=== PATIENT | female | born 1975 | race African-American/Black ===

== ENCOUNTER 2016-06-01 08:50 | Emergency (ER) | payer OTHER ==
[2016-06-01 09:02] VITALS: TEMP 98; BMI 22.1
[2016-06-01 10:39] LABS: BASOPHIL 0.8 % (0-2.0); EOSINOPHIL 0.7 % (0-4.5); MCH 26.6 pg (25.7-33.7); MCHC 31.6 g/dl (32.0-36.0); MEAN CELL VOLUME 84.2 fl (80-96); MEAN PLT VOLUME 8.5 fl (7.5-11.1); NEUTROPHILS 67.9 % (42.8-82.8); PLATELET COUNT 180 K/MM3 (134-434); RDW 22.3 % (11.6-15.6); WHITE BLOOD COUNT 8.9 K/mm3 (4.0-10.0)
[2016-06-01 10:42] LABS: URINE APPEARANCE SLCLOUDY; URINE BILIRUBIN NEGATIVE (NEGATIVE); URINE COLOR YELLOW; URINE GLUCOSE (UA) NEGATIVE (NEGATIVE); URINE KETONE NEGATIVE (NEGATIVE); URINE LEUK ESTERASE NEGATIVE (NEGATIVE); URINE NITRITE NEGATIVE (NEGATIVE); URINE UROBILINOGEN NEGATIVE E.U./dl (0.2-1.0)
[2016-06-01 10:43] LABS: URINE BLOOD 3+ (NEGATIVE); URINE PROTEIN 1+ (NEGATIVE)
[2016-06-01 10:45] LABS: URINE MUCUS FEW; URINE RBC 817 /hpf (0-3); URINE WBC 15 /hpf (3-5)
--- NOTE | 2016-06-01 10:45 | PDOC ---
History of Present Illness - General Chief Complaint: Vaginal Bleeding Stated Complaint: LOWER PELVIC PAIN/ BLEEDING Time Seen by Provider: 06/01/16 09:26 History Source: Patient Exam Limitations: No Limitations - History of Present Illness Travel History: No Initial Comments: 06/01/16 10:05 41-year-old female presents the ED with irregular menses since last week having her cycle twice amount to return since yesterday with heavy vaginal bleeding associated with grape-sized blood clots. Patient states otherwise has a normal menses but does state history of fibroids with removal a few years ago under the care of Dr. Jacobs. Patient also complaining of suprapubic cramping but she did not take anything for the above and decided come to the ER for further evaluation. Patient denies history of anemia, dizziness presently, shortness of breath or chest pain. Timing/Duration: reports: constant Quality: reports: moderate, cramping Abdominal Pain Onset Location: reports: suprapubic (mid) Pain Radiation: reports: no radiation Activities at Onset: reports: none Aggravating Factors: improves with: None Alleviating Factors: improves with: None Past History - Past Medical History Allergies/Adverse Reactions: Allergies Allergy/AdvReac Type Severity Reaction Status Date / Time No Known Allergies Allergy Verified 05/28/13 13:29 Home Medications: Ambulatory Orders No Home Medications 0 dose .ROUTE UTDICT 05/28/13 Anemia: No Asthma: No Cancer: No Cardiac Disorders: No CVA: No COPD: No CHF: No Dementia: No Diabetes: No GI Disorders: Yes (ACID REFLUX) Disorders: No HTN: No Hypercholesterolemia: No Liver Disease: No Seizures: No Thyroid Disease: No - Surgical History Abdominal Surgery: No Appendectomy: No Cardiac Surgery: No Cholecystectomy: No Lung Surgery: No Neurologic Surgery: No Orthopedic Surgery: No - Reproductive History LMP Normal: No Is Patient Now?: No - Psycho/Social/Smoking Cessation Hx Anxiety: No Suicidal Ideation: No Smoking History: Current every day smoker Have you smoked in the past 12 months: Yes Number of Cigarettes Smoked Daily: 12 Information on smoking cessation initiated: Yes 'Breaking Loose' booklet given: 06/01/16 Hx Alcohol Use: No Drug/Substance Use Hx: No Substance Use Type: None Hx Substance Use Treatment: No Patient Lives Alone: No Lives with/in: spouse/SO Review of Systems - Review of Systems Able to Perform ROS?: Yes Constitutional: No: Symptoms Reported HEENTM: No: Symptoms Reported Respiratory: No: Symptoms reported Cardiac (ROS): No: Symptoms Reported ABD/GI: Yes: Abdominal cramping (and vaginal bleeding) : No: Symptoms Reported Musculoskeletal: No: Symptoms Reported Integumentary: No: Symptoms Reported Neurological: No: Symptoms reported Hematologic/Lymphatic: No: Symptoms Reported *Physical Exam - Vital Signs Last Vital Signs Temp Pulse Resp BP Pulse Ox 98.0 F 108 H 18 162/90 100 06/01/16 08:53 06/01/16 08:53 06/01/16 08:53 06/01/16 08:53 06/01/16 08:53 - Physical Exam General Appearance: Yes: Nourished, Appropriately Dressed. No: Apparent Distress HEENT: negative: Pale Conjunctivae Neck: positive: Supple Respiratory/Chest: positive: Lungs Clear, Normal Breath Sounds. negative: Respiratory Distress, Accessory Muscle Use Cardiovascular: positive: Regular Rhythm, Tachycardia. negative: Murmur Female Pelvic Exam: positive: cervical os closed, vaginal bleeding (bright red blood with small clots) Gastrointestinal/Abdominal: positive: Normal Bowel Sounds, Soft, Distended ( mild mid suprapubic). negative: Tenderness Musculoskeletal: negative: CVA Tenderness Integumentary: positive: Normal Color, Warm, Moist Neurologic: positive: Motor Strength 5/5 (ambulatory) ED Treatment Course - LABORATORY CBC & Chemistry Diagram: 06/01/16 10:20 Medical Decision Making - Medical Decision Making 06/01/16 10:07 Complaints of vaginal bleeding with clots and irregular menses for the past month. Patient states history of fibroids and removal a few years ago. Patient states has not taken anything for the above and decided come to the ER. Patient on exam had moderate amount of bright red blood with small clots and mid suprapubic distention. Patient states states highly unlikely that she is . Patient ordered for CBC, urinalysis and urine . If negative will order a pelvic ultrasound and Motrin 06/01/16 11:09 Laboratory Tests 06/01/16 06/01/16 10:20 10:20 WBC 8.9 D Hgb 9.8 L D Hct 31.0 L D Plt Count 180 Neutrophils % 67.9 Monocytes % 14.8 H Urine Protein 1+ H Urine Ketones Negative Urine Blood 3+ H Urine Nitrite Negative Ur Leukocyte Esterase Negative Urine RBC 817 Urine HCG, Qual Negative patient ordered for ultrasound and Motrin 06/01/16 12:15 Ultrasound shows an enlarged uterus measuring 19.7 x 9.8 x 8.8 with multiple and uterine masses consistent with fibroids. The largest fibroid measuring 5.6 x 3.8 x 5.4. There is also noted thickening endometrial 2.0 cm. Patient will be told to follow-up with Dr. Jacobs this week *DC/Admit/Observation/Transfer Diagnosis at time of Disposition: Dysmenorrhea Uterine leiomyoma Qualifiers: Uterine leiomyoma location: intramural Qualified Code(s): D25.1 - Intramural leiomyoma of uterus - Discharge Dispostion Disposition: HOME Condition at time of disposition: Good - Referrals Referrals: Chrissy Jacobs MD [Staff Physician] - - Patient Instructions Printed Discharge Instructions: DI for Uterine Fibroids Additional Instructions: May take Tylenol Motrin for discomfort. Please use a heating pad to the affected area. Please eat iron enriched foods and drink plenty of fluids . Follow-up with Dr. Jacobs this week and bring copy of ultrasound with you.
[2016-06-01] MEDS ORDERED: IBUPROFEN 600 MG TABLET (FP) PO ONE ×2 (11:04→11:20)
[2016-06-01 13:12] VITALS: BP 144/60; PULSE 95
--- NOTE | 2016-06-01 16:36 | PDOC ---
*Physical Exam - Vital Signs Last Vital Signs Temp Pulse Resp BP Pulse Ox 98.0 F 95 H 18 144/60 99 06/01/16 08:53 06/01/16 13:11 06/01/16 13:11 06/01/16 13:11 06/01/16 13:11 ED Treatment Course - LABORATORY CBC & Chemistry Diagram: 06/01/16 10:20 - ADDITIONAL ORDERS Additional order review: Laboratory Results 06/01/16 10:20 Urine Color Yellow Urine Appearance Slcloudy Urine pH 6.0 Ur Specific Banner 1.023 Urine Protein 1+ H Urine Glucose (UA) Negative Urine Ketones Negative Urine Blood 3+ H Urine Nitrite Negative Urine Bilirubin Negative Urine Urobilinogen Negative Ur Leukocyte Esterase Negative Urine RBC 817 Urine WBC 15 Ur Epithelial Cells Rare Urine Mucus Few Urine HCG, Qual Negative 06/01/16 10:20 RBC 3.69 D MCV 84.2 MCHC 31.6 L RDW 22.3 H D MPV 8.5 Neutrophils % 67.9 Lymphocytes % 15.8 D Monocytes % 14.8 H Eosinophils % 0.7 Basophils % 0.8 D - Medications Given in the ED: ED Medications Discontinued Medications Generic Name Dose Route Start Last Admin Trade Name Freq PRN Reason Stop Dose Admin Ibuprofen 600 mg 06/01/16 11:04 06/01/16 11:30 Motrin - PO 06/01/16 11:05 600 mg ONCE ONE Administration Medical Decision Making - Medical Decision Making 06/01/16 16:36 Pt seen by Midlevel Provider under my direct supervision I agree with plan as outlined by Midlevel Provider *DC/Admit/Observation/Transfer Diagnosis at time of Disposition: Dysmenorrhea Fibroids Qualifiers: Uterine leiomyoma location: intramural Qualified Code(s): D25.1 - Intramural leiomyoma of uterus - Discharge Dispostion Disposition: HOME Condition at time of disposition: Good - Referrals Referrals: Chrissy Jacobs MD [Staff Physician] - - Patient Instructions Printed Discharge Instructions: DI for Uterine Fibroids Additional Instructions: May take Tylenol Motrin for discomfort. Please use a heating pad to the affected area. Please eat iron enriched foods and drink plenty of fluids . Follow-up with Dr. Jacobs this week and bring copy of ultrasound with you. - Post Discharge Activity
== END 2016-06-01 13:12 | disposition home or self-care (01) ==
LOC: JER 08:50
DX: N94.6 Dysmenorrhea, unspecified (principal); D25.1 Intramural leiomyoma of uterus
CPT/HCPCS: 36415; 76856-TC; 81003; 81015; 84703; 85025; 99283-25

== ENCOUNTER 2016-06-21 05:04 | Inpatient (IN) | payer OTHER ==
[2016-06-17 12:07] VITALS: BMI 21.8
[2016-06-21] MEDS ORDERED: ROPIVACAINE HCL 0.5% 30ML VIAL ONE (08:54)
[2016-06-21] MEDS ORDERED: MIDAZOLAM HCL 2 MG/2 ML SINGLE DOSE VIAL ONE ×3 (08:56→09:17)
[2016-06-21] MEDS ORDERED: ePHEDrine SULFATE 50 MG/1 ML AMPULE ONE (09:16)
[2016-06-21] MEDS ORDERED: SUCCINYLCHOLINE CHLORIDE 200 MG/10 ML VIAL ONE (09:17)
[2016-06-21] MEDS ORDERED: ROCURONIUM BROMIDE 50 MG/5 ML VIAL ONE (09:17)
[2016-06-21] MEDS ORDERED: PROPOFOL 20 ML ONE ×2 (09:17)
[2016-06-21] MEDS ORDERED: BUPIVACAINE HCL/PF 0.5% (5MG/ML) 10 ML VIAL ONE (09:24)
--- NOTE | 2016-06-21 09:34 | HP ---
History & Physical Update - History History: No Change - Physical Physical: No Change - Assessment Assessment: No Change - Plan Plan: No Change (41 y/o with enlarged fibroid uterus, menorrhagia and abdominal pain - for total abdominal hysterectomy and bilateral salpingectomy.)
[2016-06-21] MEDS ORDERED: BUPIVACAINE HCL/PF 0.5% (5MG/ML) 10 ML VIAL IJ ONE (10:00)
[2016-06-21] MEDS ORDERED: ceFAZolin SODIUM 1 GM VIAL IVPB ONE (10:20)
[2016-06-21] MEDS ORDERED: METHYLENE BLUE 1% 10 MG/1 ML VIAL ONE (10:52)
[2016-06-21] MEDS ORDERED: METHYLENE BLUE 1% 10 MG/1 ML VIAL IVPUSH ONE (10:54)
--- NOTE | 2016-06-21 12:24 | OP ---
Operative Note - Note: Operative Date: 06/21/16 (dictation number: [id number]) Pre-Operative Diagnosis: Fibroid uterus, menorrhagia, abdominal pain Operation: Total abdominal hysterectomy, bilateral salpingectomy, right oophorectomy Findings: left ovarian cyst - appeared to be dermoid in nature adhesions from bladder to anterior uterus Post-Operative Diagnosis: Same as Pre-op (and left ovarian cyst) Surgeon: Keiko Bennett Cake Wringer: Chrissy Jacobs Anesthesiologist/BEHAVIORAL PSYCHOLOGIST: Raymond Umana Anesthesia: General Specimens Removed: Uterus, bilateral fallopian tubes, right ovary, cervix, left ovarian cyst Estimated Blood Loss (mls): 650 Operative Report Dictated: Yes
[2016-06-21] MEDS ORDERED: IBUPROFEN 800 MG/8 ML IJ IVPB PRN (12:25)
[2016-06-21] MEDS ORDERED: IBUPROFEN 600 MG TABLET (FP) PO PRN (12:25)
[2016-06-21] MEDS ORDERED: ACETAMINOPHEN 325 MG TABLET (FP) PO PRN (12:25)
[2016-06-21] MEDS ORDERED: SENNOSIDES/DOCUSATE COMBO (SENNA PLUS) TABLET (UD) PO PRN (12:25)
[2016-06-21] MEDS ORDERED: ONDANSETRON 4 MG/2 ML VIAL IVPB PRN (12:27)
[2016-06-21] MEDS: LACTATED RINGERS SOLUTION 1,000 ML IV SCH (14:42)
[2016-06-21 16:38] LABS: MCH 27.7 pg (25.7-33.7); MCHC 31.3 g/dl (32.0-36.0); MEAN CELL VOLUME 88.6 fl (80-96); MEAN PLT VOLUME 8.1 fl (7.5-11.1); PLATELET COUNT 353 K/MM3 (134-434); RDW 22.7 % (11.6-15.6); WHITE BLOOD COUNT 15.2 K/mm3 (4.0-10.0)
[2016-06-21] MEDS: HYDROmorphone HCL CARPU-JECT 1 MG/1 ML DISP.SYRIN IVPB PRN ×2 (17:45→22:50)
[2016-06-21] MEDS: CEFAZOLIN (PRE-DOCKED) 50 ML IVPB SCH (18:32)
[2016-06-21 20:46] LABS: ANISOCYTOSIS 1+; HYPOCHROMIA 1+; PLATELET ESTIMATE ADEQUATE (NORMAL)
--- NOTE | 2016-06-22 00:04 | OP ---
DATE OF OPERATION: DATE OF DICTATION: 06/21/2016 PREOPERATIVE DIAGNOSIS: Enlarged fibroid uterus, abdominal pain and menorrhagia. POSTOPERATIVE DIAGNOSIS: Enlarged fibroid uterus, abdominal pain and menorrhagia. Left ovarian cyst. PROCEDURE: Total abdominal hysterectomy. Bilateral salpingectomy. Right oophorectomy. Left ovarian cystectomy. SURGEON: Keiko Bennett M.D. TABLEAU LEAD: Chrissy Jacobs M.D. ANESTHESIA: General, administered by Titi Espinoza M.D., and PODODERMATOLOGIST Raymond Umana. ESTIMATED BLOOD LOSS: 650 mL. COMPLICATIONS: None. DISPOSITION: Stable to PACU. SPECIMEN: Specimens removed included uterus, right ovary, bilateral fallopian tubes, left ovarian cyst and cervix. COUNTS: Sponge, needle, and instrument count was correct at the end of the case. BRIEF HISTORY AND PROCEDURE: Patient is a 41-year-old female who was seen in the office with complaints of abdominal pain and menorrhagia with a known prior history of uterine fibroids. The patient had history of a myomectomy in the past and now looked to undergo definitive treatment with a hysterectomy procedure. The patient signed consents for the procedure in the office and was admitted to [facility] on June 21, 2016. Consents were reconfirmed. The patient was then taken back to the operating room where she was given general anesthesia by Dr. Espinoza, administered and maintained by Raymond Umana. The patient was then prepped and draped in the usual sterile fashion in the dorsal supine position. A Chavez catheter was placed under sterile conditions, and a hard timeout was performed. Next, a Pfannenstiel skin incision was created in the skin using the scalpel and carried to the underlying area of rectus fascia with the Bovie. The rectus fascia was incised on either side of the midline with the Bovie, and the incision was carried in the superolateral direction with the Bovie. The rectus fascia was tented upward and dissected off the underlying layer of rectus muscle. Next the rectus muscle was elevated and sharply, and the peritoneum was entered bluntly. The Peritoneum was then carefully dissected to allow for adequate room for the procedure. The uterus was identified, grasped and elevated out of the abdomen. Adhesions from the omentum to the left portion of the uterus were noted which were dissected off with Metzenbaum scissors. Next, attention was turned to the right side of the uterus where the bladder appeared to be adhered to the anterior portion. This bladder was then carefully dissected away from the anterior portion of the uterus and the cervix. Next, the right uteroovarian ligament was identified, clamped, and ligated with the Ligasure device. This was done on several passes. During this dissection the right ovary appeared to be densely adhered to the uterus and upon attempting to dissect the ovary away from the uterus which was difficult, it was decided to remove the ovary at this time. The right infundibulopelvic ligament was located, isolated, clamped, and ligated with the Ligasure device. The ovary remained adhered to the uterus at this time. The uterine arteries on the right side were difficult to see at this time, so attention was then turned to the left portion of the uterus. The left uteroovarian ligament was identified, isolated, clamped and cut with the Ligasure device, detaching the left ovary and tube from the uterus. Next, the round ligament was identified, clamped, ligated , and cut with the Ligasure device, and the bladder anteriorly was dissected away from the anterior portion of the uterus and cervix on the left side meeting the prior dissection on the right side. At this point, the bladder seemed to be fully dissected away from the anterior portion of the uterus and the cervix. The left uterine arteries were isolated, ligated, and cut with the Ligasure device to the level of the uterosacral ligaments. Attention was then turned to the right side. At this point, the uterine arteries were easily identified and skeletonized and isolated. Then they were clamped and ligated with the Ligasure device on several passes until the level of the uterosacral ligaments was reached. The anterior portion of the vagina was entered sharply with a scalpel at the cervicovaginal junction, and using Lit scissors, the uterus was detached from the top of the vagina in a circumferential fashion. At this point, the uterus, right ovary, and cervix were sent to pathology for evaluation. The vagina was then reapproximated in the running locked fashion with 0 Vicryl suture. Hemostasis was achieved. Attention was then turned to the right adnexa, and the fallopian tube was elevated and ligated and dissected off its attachment and sent to pathology for permanent evaluation. The right adnexa appeared to be hemostatic at this time. The ureter was identified transperitoneally on the right side at this time, noted to be within normal caliber and peristalsing. At this time, methylene blue was administered, as there was plan to evaluate bladder integrity later in the procedure. Next, attention was turned to the left ovary which appeared to have a large approximately 4 cm cyst. The ovary was elevated, and the ovarian stoma was incised using the Bovie, and what appeared to be a dermoid cyst was appreciated and dissected away from its attachment to the ovary. The ovarian cyst was sent off to pathology for permanent evaluation. The ovarian bed was cauterized to achieve hemostasis, and then the fallopian tube which was adhered to the ovary was elevated and dissected off its attachment to the ovary using Ligasure device and sent off to pathology for permanent evaluation. Again, hemostasis was appreciated on the left adnexa after this portion of the procedure. Attention was then turned again to the vagina. A small area of the peritoneum was noted to be bleeding which was cauterized on the posterior wall of the vagina. At this point the bladder was back filled using the Chavez device with approximately 250 mL of fluid. The bladder did fill, and no methylene blue or urine was noted to be leaking into the abdomen, and the bladder appeared to be intact. The abdomen was irrigated and suctioned. A piece of interceed was placed on the vaginal cuff. Attention was then turned to the left ovary and Interceed was also placed inside the ovary where the surgical procedure had taken place. Again, no methylene blue was noted to be within the abdominal cavity leaking from the bladder at this time. Next, bilateral ureters were identified transperitoneally and noted to be within normal caliber and peristalsing. All sponges were then removed from the abdominal cavity. Instruments were removed from the abdominal cavity. The peritoneum was reapproximated using Vicryl suture in a running fashion. Musculature was reapproximated in a single mattress suture. The fascia was reapproximated using 0 Vicryl in a running fashion. The subcutaneous tissue was reapproximated using 2-0 Vicryl in a running fashion, and the skin was reapproximated using 3-0 Vicryl in a subcuticular fashion. Steri- Strips were applied, Marcaine was injected underneath the incision at this time for further pain control. Patient was awoke from anesthesia in stable condition and was taken to the PACU in stable condition where she is now recovering. All sponge, needle and instrument counts were reported as correct at the end of the case. KEIKO BENNETT DO /[id number] MTDD
[2016-06-22] MEDS: CEFAZOLIN (PRE-DOCKED) 50 ML IVPB SCH ×2 (03:00→09:42)
[2016-06-22] MEDS ORDERED: CEFAZOLIN (PRE-DOCKED) 50 ML IVPB ONE (06:23)
[2016-06-22] MEDS: HYDROmorphone HCL CARPU-JECT 1 MG/1 ML DISP.SYRIN IVPB PRN (07:38)
[2016-06-22] MEDS: SIMETHICONE 80 MG TAB.CHEW (FP) PO PRN ×2 (08:02→18:58)
[2016-06-22] MEDS: LACTATED RINGERS SOLUTION 1,000 ML IV SCH ×2 (08:04→12:45)
[2016-06-22 08:51] LABS: BASOPHIL 0.2 % (0-2.0); MCH 27.5 pg (25.7-33.7); MEAN CELL VOLUME 88.9 fl (80-96); MEAN PLT VOLUME 8.4 fl (7.5-11.1); PLATELET COUNT 267 K/MM3 (134-434); RDW 21.9 % (11.6-15.6); WHITE BLOOD COUNT 18.2 K/mm3 (4.0-10.0)
[2016-06-22] MEDS: ENOXAPARIN NA (PORCINE) 40 MG/0.4 ML DISP.SYRIN SQ SCH (09:42)
[2016-06-22] MEDS: oxyCODONE HCL 5 MG TABLET PO PRN ×4 (13:10→22:13)
--- NOTE | 2016-06-22 21:45 | PN ---
Progress Note, Physician Chief Complaint: Pt without complaints. Resting upon my arrival to the room. History of Present Illness: 41 y/o POD#1 s/p RAMO/Bilateral salpingectomy and right oophorectomy with post op anemia, no other complaints. Pt denies CP/SOB/F/C/MURRELL. States she is ambulating without dizziness. No symptoms of anemia. Tolerating clears, voiding, passing flatus. - Current Medication List Current Medications: Active Medications Acetaminophen (Tylenol -) 650 mg PO Q4H PRN PRN Reason: FEVER OR PAIN Enoxaparin Sodium (Lovenox -) 40 mg SQ DAILY LUIS DANIEL Last Admin: 06/22/16 09:42 Dose: 40 mg Fentanyl (Sublimaze Injection -) 50 mcg IVPUSH [id number] PRN PRN Reason: PAIN Stop: 06/24/16 12:37 Last Admin: 06/21/16 13:35 Dose: 50 mcg Hydromorphone HCl (Dilaudid Injection -) 1 mg IVPB Q4H PRN PRN Reason: PAIN LEVEL 6-10 Last Admin: 06/22/16 07:38 Dose: 1 mg Ibuprofen (Motrin -) 600 mg PO Q4H PRN PRN Reason: PAIN Oxycodone HCl (Roxicodone -) 5 mg PO Q4H PRN PRN Reason: PAIN LEVEL 1-5 Oxycodone HCl (Roxicodone -) 10 mg PO Q4H PRN PRN Reason: PAIN LEVEL 6-10 Last Admin: 06/22/16 17:32 Dose: 10 mg Senna/Docusate Sodium (Pericolace -) 2 tablet PO HS PRN PRN Reason: CONSTIPATION Simethicone (Mylicon -) 80 mg PO Q4H PRN PRN Reason: GAS Last Admin: 06/22/16 18:58 Dose: 80 mg - Objective Vital Signs: Vital Signs Temperature 98.2 F 06/22/16 20:44 Pulse Rate 94 H 06/22/16 20:44 Respiratory Rate 20 06/22/16 20:44 Blood Pressure 142/83 06/22/16 20:44 O2 Sat by Pulse Oximetry (%) 100 06/22/16 09:15 Constitutional: Yes: Well Nourished, No Distress, Calm Eyes: Yes: Conjunctiva Clear, EOM Intact HENT: Yes: Atraumatic, Normocephalic Neck: Yes: Supple, Trachea Midline Cardiovascular: Yes: Regular Rate and Rhythm Respiratory: Yes: Regular, CTA Bilaterally Gastrointestinal: Yes: Normal Bowel Sounds, Soft Wound/Incision: Yes: Clean/Dry, Well Approximated, Steri Strips Labs: CBC, BMP 06/22/16 05:35 Problem List - Problems (1) S/P total abdominal hysterectomy Code(s): Z90.710 - ACQUIRED ABSENCE OF BOTH CERVIX AND UTERUS (2) Status post bilateral salpingectomy Code(s): Z90.79 - ACQUIRED ABSENCE OF OTHER GENITAL ORGAN(S) (3) S/P right oophorectomy Code(s): Z90.721 - ACQUIRED ABSENCE OF OVARIES, UNILATERAL (4) Postoperative anemia due to acute blood loss Code(s): D62 - ACUTE POSTHEMORRHAGIC ANEMIA (5) Postoperative anemia Code(s): D64.9 - ANEMIA, UNSPECIFIED Assessment/Plan 41 y/o POD#1 s/p RAMO, bilateral salpingectomy, right oophorectomy and left ovarian cystectomy due to fibroids, AUB, and left ovarian cyst - AFVSS - Hgb 7.5 post op will recheck CBC in a.m., to consider transfusion if symptomatic or if Hgb continues to drop - regular diet - PO pain meds - ambulation - routine post op care
[2016-06-23] MEDS: oxyCODONE HCL 5 MG TABLET PO PRN ×2 (04:59→15:18)
[2016-06-23 07:11] LABS: MCH 27.6 pg (25.7-33.7); MCHC 31.1 g/dl (32.0-36.0); MEAN CELL VOLUME 88.8 fl (80-96); PLATELET COUNT 228 K/MM3 (134-434); RDW 21.6 % (11.6-15.6); WHITE BLOOD COUNT 11.5 K/mm3 (4.0-10.0)
--- NOTE | 2016-06-23 10:05 | PN ---
Progress Note, Physician Chief Complaint: Pt seen/examined. Feels well. Pain controlled, tolerating clear diet . Passing flatus, voiding. Hgb 6.7 this a.m. Pt denies any VB. No light headedness or dizziness. No CP/SOB. Asymptomatic. - Current Medication List Current Medications: Active Medications Acetaminophen (Tylenol -) 650 mg PO Q4H PRN PRN Reason: FEVER OR PAIN Enoxaparin Sodium (Lovenox -) 40 mg SQ DAILY LUIS DANIEL Last Admin: 06/22/16 09:42 Dose: 40 mg Fentanyl (Sublimaze Injection -) 50 mcg IVPUSH [id number] PRN PRN Reason: PAIN Stop: 06/24/16 12:37 Last Admin: 06/21/16 13:35 Dose: 50 mcg Hydromorphone HCl (Dilaudid Injection -) 1 mg IVPB Q4H PRN PRN Reason: PAIN LEVEL 6-10 Last Admin: 06/22/16 07:38 Dose: 1 mg Ibuprofen (Motrin -) 600 mg PO Q4H PRN PRN Reason: PAIN Oxycodone HCl (Roxicodone -) 5 mg PO Q4H PRN PRN Reason: PAIN LEVEL 1-5 Last Admin: 06/23/16 04:59 Dose: 5 mg Oxycodone HCl (Roxicodone -) 10 mg PO Q4H PRN PRN Reason: PAIN LEVEL 6-10 Last Admin: 06/22/16 22:13 Dose: 10 mg Senna/Docusate Sodium (Pericolace -) 2 tablet PO HS PRN PRN Reason: CONSTIPATION Simethicone (Mylicon -) 80 mg PO Q4H PRN PRN Reason: GAS Last Admin: 06/22/16 18:58 Dose: 80 mg - Objective Vital Signs: Vital Signs Temperature 98.0 F 06/23/16 05:00 Pulse Rate 86 06/23/16 05:00 Respiratory Rate 18 06/23/16 05:00 Blood Pressure 126/73 06/23/16 05:00 O2 Sat by Pulse Oximetry (%) 100 06/22/16 22:00 Constitutional: Yes: Well Nourished, No Distress, Calm Eyes: Yes: Conjunctiva Clear, EOM Intact HENT: Yes: Atraumatic, Normocephalic Neck: Yes: Supple, Trachea Midline Cardiovascular: Yes: Regular Rate and Rhythm Respiratory: Yes: Regular, CTA Bilaterally Gastrointestinal: Yes: Normal Bowel Sounds, Soft, Tenderness (appropriate post surgical tenderness). No: Tenderness, Epigastrium, Tenderness, Rebound, Vomiting Wound/Incision: Yes: Clean/Dry, Well Approximated Neurological: Yes: Alert, Oriented Psychiatric: Yes: Alert, Oriented Labs: CBC, BMP 06/23/16 06:25 Problem List - Problems (1) S/P total abdominal hysterectomy Code(s): Z90.710 - ACQUIRED ABSENCE OF BOTH CERVIX AND UTERUS (2) Status post bilateral salpingectomy Code(s): Z90.79 - ACQUIRED ABSENCE OF OTHER GENITAL ORGAN(S) (3) S/P right oophorectomy Code(s): Z90.721 - ACQUIRED ABSENCE OF OVARIES, UNILATERAL (4) Postoperative anemia due to acute blood loss Code(s): D62 - ACUTE POSTHEMORRHAGIC ANEMIA (5) Postoperative anemia Code(s): D64.9 - ANEMIA, UNSPECIFIED Assessment/Plan 41 y/o POD#2 s/p RAMO, bilateral salpingectomy, right oophorectomy and left ovarian cystectomy due to fibroids, AUB, and left ovarian cyst - AFVSS - Hgb 6.7 this a.m. pt asymptomatic - discussed transfusion, pt agrees, will give 2 units packed red cells a this time - regular diet - PO pain meds - ambulation - routine post op care likely for discharge home after 2 units packed cells given
[2016-06-23] MEDS: ENOXAPARIN NA (PORCINE) 40 MG/0.4 ML DISP.SYRIN SQ SCH (10:55)
[2016-06-23 11:38] VITALS: BP 133/81; PULSE 91; TEMP 97.9
[2016-06-23] MEDS: SIMETHICONE 80 MG TAB.CHEW (FP) PO PRN (11:58)
[2016-06-23 18:39] LABS: BASOPHIL 0.6 % (0-2.0); EOSINOPHIL 0.3 % (0-4.5); MCH 27.6 pg (25.7-33.7); MEAN CELL VOLUME 86.2 fl (80-96); MEAN PLT VOLUME 8.6 fl (7.5-11.1); NEUTROPHILS 77.5 % (42.8-82.8); PLATELET COUNT 270 K/MM3 (134-434); RDW 20.1 % (11.6-15.6); WHITE BLOOD COUNT 11.8 K/mm3 (4.0-10.0)
--- NOTE | 2016-06-24 06:53 | DS ---
[id number] Rate 16 06/23/16 10:00 Blood Pressure 133/81 06/23/16 10:00 O2 Sat by Pulse Oximetry (%) 100 06/22/16 22:00 Constitutional: Yes: Well Nourished, No Distress, Calm Eyes: Yes: Conjunctiva Clear, EOM Intact HENT: Yes: Atraumatic, Normocephalic Neck: Yes: Supple, Trachea Midline Cardiovascular: Yes: Regular Rate and Rhythm Respiratory: Yes: Regular, CTA Bilaterally Gastrointestinal: Yes: Normal Bowel Sounds, Soft, Tenderness (appropriate post surgical tenderness) Musculoskeletal: Yes: WNL Extremities: Yes: WNL Wound/Incision: Yes: Clean/Dry, Well Approximated, Steri Strips Neurological: Yes: Alert, Oriented Psychiatric: Yes: Alert, Oriented Labs: CBC, BMP 06/23/16 17:15 Discharge Summary Reason For Visit: FIBROIDS Fibroids, Menorrhagia, Anemia, abdominal pain Procedures: Principal: Total abdominal hysterectomy, bilateral salpingectomy, right oophorectomy Other Procedures: blood transfusion Hospital Course: Patient admitted to [facility] on 06/21/16 for total abdominal hysterectomy and bilateral salpingectomy. Patient underwent the procedure without complication. EBL was 650cc. Please see operative report for full details. The patient recovered well and met all post operative milestones. On post operatives day 2, then patient was ambulation, voiding, passing flatus and tolerating diet. Her hemoglobin nadired to 6.7. At this point, the patient was counseled and then transfused 2 units of packed red blood cells. On the evening of 06/23/16, the patient's hemoglobin had risen to 10.2. Vitals remained stable. The patient was then discharged home in stable condition on post op day 2. Condition: Good - Instructions Diet, Activity, Other Instructions: Physical activity Resume your normal everyday activity as tolerated no heavy lifting or strenuousexercise until seen by your surgeon. You may walk unlimited amounts and climb stairs. You may resume driving the car when you feel safe and comfortable behind the wheel. No sexual activity as instructed for at least 6 weeks. Wound care If there are tapes on the skin leave them in place. They will peel off in the next 7 to 10 days. Do Not Peel them off. You may shower the day after surgery. If there are tapes present on the skin, you may shower over them. You may shower. No soaking in baths/tubs/pools for 6 weeks. Diet There are no dietary restrictions. Eat healthy, high-fiber foods. Drink 6 to 8 glasses of liquid each day. This will assist in keeping your bowels regular. Pain management You may take Tylenol or acetaminophen or Ibuprofen (for example, Motrin, Advil etc.) for pain. If any prescription pain medication is sent to your pharmacy, you may take as directed for severe pain. Call Dr. Bennett for any of the following: Severe pain not relieved by medication Fever of 101 or higher Excessive bleeding or drainage on dressing Inability to urinate Call the office at [phone] for an appointment in seven days. Referrals: Keiko Bennett DO [Staff Physician] - 1 Week (make an appointment at the office for incision check ) Disposition: HOME - Home Medications Comprehensive Discharge Medication List: Ambulatory Orders No Home Medications 0 dose .ROUTE UTDICT 05/28/13 Ibuprofen [Motrin -] 400 mg PO PRN PRN 06/17/16 Iron 65 mg PO DAILY 06/17/16 Medroxyprogesterone Acetate 10 mg PO DAILY 06/17/16 Oxycodone HCl/Acetaminophen [Percocet 5-325 mg Tablet -] 1 tab PO Q4H #30 tablet MDD 6 06/23/16
--- NOTE | 2016-06-25 14:54 | PATH ---
Surgical Pathology Report Patient Name: DENYS QUICK [facility]. Rec. #: [id number] /Age/Gender: 1975 (Age: 41) / F Account: [id number] Location: [address] [place] [address] Taken: 06/21/2016 Received: 06/21/2016 Reported: 06/25/2016 Physicians: Keiko Bennett M.D. Specimen(s) Received A: RIGHT FALLOPIAN TUBE B: PORTION OF LEFT OVARIAN CYST C: LEFT FALLOPIAN TUBE D: UTERUS AND CERVIX & FIBROIDS Clinical History Fibroids Final Diagnosis A. FALLOPIAN TUBE, RIGHT, SALPINGECTOMY: BENIGN FALLOPIAN TUBE WITH CHRONIC SALPINGITIS AND FIBROVASCULAR ADHESIONS. B. OVARY, LEFT PORTION OF CYST, CYSTECTOMY: BENIGN HEMORRHAGIC CYST. C. FALLOPIAN TUBE, LEFT, SALPINGECTOMY: BENIGN FALLOPIAN TUBE WITH CHRONIC SALPINGITIS, MILD HYDROSALPINX AND FIBROVASCULAR ADHESIONS. D. UTERUS, CERVIX, FIBROIDS, RIGHT OVARY, TOTAL ABDOMINAL HYSTERECTOMY: CERVIX: ACTIVE/CHRONIC CERVICITIS AND SQUAMOUS METAPLASIA. ENDOMETRIUM: ENDOMETRIAL POLYP, WEAKLY PROLIFERATIVE ENDOMETRIUM. MYOMETRIUM: ADENOMYOSIS, LEIOMYOMATA (LARGEST 4.8 CM). UTERINE SEROSA: FIBROVASCULAR ADHESIONS. RIGHT OVARY: CYSTIC FOLLICLES, FIBROVASCULAR ADHESIONS. Comment: Immunohistochemical stains for p16 and Ki67 performed [place], [place] on block D2 and interpreted at [facility] show the following: p16 shows only weak staining, KI67 is not elevated, favoring reactive/inflammatory process. Electronically Signed Fabrice Lund M.D. Gross Description A. Received in formalin, labeled "right fallopian tube" is a 6 cm in length portion of fallopian tube. No fimbria are present. The outer surface is flores-pink. Sectioning reveals a pinpoint lumen. Clam Shucker sections are submitted in one cassette. B. Received in formalin, labeled "portion of left ovarian cyst" is a 4.5 x 3.5 x 1.7 cm aggregate of multiple flores-red, irregular soft tissue fragments, possibly consistent with a disrupted cyst. Clam Shucker sections are submitted in 4 cassettes. C. Received in formalin, labeled "left fallopian tube" are 2 portions of fallopian tube measuring 0.8 and 3.5 cm in length. No fimbria are present. The outer surfaces are flores-pink with focal adhesions. Sectioning reveals a focal thickening of the wall. Clam Shucker sections are submitted in 2 cassettes as follows: 1-shorter portion of tube; 2-longer portion of tube. D. Received in formalin, labeled "uterus, cervix, fibroid" is a 616 g uterus with an attached cervix and an attached right ovary. The specimen measures 14.5 cm from superior to inferior, 11 cm from left to right and 9 cm from anterior to posterior. The serosa is flores-pink with fibrous adhesions and the right ovary is adhesed to the posterior serosa. The attached cervix measures 2.5 cm in length and averages 2.8 cm in diameter. The ectocervix is pink-flores, smooth and glistening. The endocervix is unremarkable. The endometrial cavity measures 7 cm from superior to inferior and 4.2 cm from cornu to cornu. The endometrium displays a 3.0 x 2.5 x 0.6 cm pink-flores polyp at the fundus. The remaining endometrium is flores-red and averages 0.1 cm thickness. The myometrium displays multiple intramural nodules measuring up to 4.8 cm in greatest dimension. The cut surface of the nodules is flores, firm to rubbery and displays whorled architecture. No areas of hemorrhage or necrosis are identified. The remaining myometrium is flores-pink and measures up to 4.5 cm in thickness. The attached right ovary measures 3.0 x 2.5 x 0.8 cm. The outer surface displays adhesions to the serosa. Sectioning reveals unremarkable ovarian parenchyma. Separately received within the same container is a 5 g aggregate of 2 flores, firm to rubbery nodules, consistent with fibroids. The fibroids measure 1.5 and 3.0 cm in greatest dimension. No areas of hemorrhage or necrosis are identified. Clam Shucker sections are submitted in 16 cassettes as follows: 1-anterior cervix; 2-posterior cervix; 3-fundic polyp with attached myometrium; 2-7-zocoiyjfy of fundic polyp; 3-5-epycdilj endomyometrium; 2-6-sflsmphtq endomyometrium; 63-49-dbkwunvfvx nodules; 13-14-right ovary; 15-smaller separately received fibroid; 16-larger separately received fibroid. 06/21/201606/21/2016
== END 2016-06-23 20:33 | disposition home or self-care (01) | DRG 742 ==
LOC: JSAMEDAYSX 05:04 → MERGE 05:04 → J6S 14:35
PROVIDERS: ADMIT Obstetrics & Gynecology; ATTEND Obstetrics & Gynecology
PROC: 0UTC0ZZ Resection of Cervix, Open Approach (ICD-10-PCS; 2016-06-21)
PROC: 0UT00ZZ Resection of Right Ovary, Open Approach (ICD-10-PCS; 2016-06-21)
PROC: 0UT70ZZ Resection of Bilateral Fallopian Tubes, Open Approach (ICD-10-PCS; 2016-06-21)
PROC: 0UN90ZZ Release Uterus, Open Approach (ICD-10-PCS; 2016-06-21)
PROC: 0UB10ZZ Excision of Left Ovary, Open Approach (ICD-10-PCS; 2016-06-21)
PROC: 0UT90ZZ Resection of Uterus, Open Approach (ICD-10-PCS; principal; 2016-06-21 10:00)
PROC: 30233N1 Transfusion of Nonautologous Red Blood Cells into Peripheral Vein, Percutaneous Approach (ICD-10-PCS; 2016-06-23)
DX: D25.9 Leiomyoma of uterus, unspecified (principal); D62 Acute posthemorrhagic anemia; N92.0 Excessive and frequent menstruation with regular cycle; N83.202 Unspecified ovarian cyst, left side; N73.6 Female pelvic peritoneal adhesions (postinfective)
CPT/HCPCS: 36415; 36430; 84702; 85025; 85027; 86850; 86900; 86901; 86922; 88305-TC; 88307-TC; 88341-TC; 94760; P9038; P9058

== ENCOUNTER 2017-04-29 23:22 | Emergency (ER) | payer OTHER ==
[2017-04-29 23:36] VITALS: BP 147/85; PULSE 98; TEMP 98; BMI 22.7
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
== END 2017-04-30 00:19 | disposition home or self-care (01) ==
LOC: MERGE 23:22 → JER 23:22
DX: S01.112A Laceration without foreign body of left eyelid and periocular area, initial encounter (principal); S10.83XA Contusion of other specified part of neck, initial encounter; Y04.2XXA Assault by strike against or bumped into by another person, initial encounter; Y93.89 Activity, other specified; Y92.89 Other specified places as the place of occurrence of the external cause; Y07.03 Male partner, perpetrator of maltreatment and neglect
CPT/HCPCS: 99281-25

== ENCOUNTER 2019-01-02 10:33 | Emergency (ER) | payer OTHER ==
[2019-01-02 10:38] VITALS: BP 133/91; TEMP 98.2; BMI 21.4
[2019-01-02] MEDS ORDERED: IBUPROFEN 400 MG TABLET (FP) PO ONE ×2 (10:49→11:09)
--- NOTE | 2019-01-02 11:08 | PDOC ---
History of Present Illness - General Chief Complaint: Pain, Acute Stated Complaint: LEFT SIDE PAIN Time Seen by Provider: 01/02/19 10:35 - History of Present Illness Initial Comments: 01/02/19 10:55 43 years old with no significant past medical history status post mechanical fall yesterday onto a bag of bottles. Landed on her left ribs sustained a bruise along her left mid ribs in the midaxillary line. Pain progressively worsened over the last day. No difficulty breathing no abdominal pain no vomiting pain is moderate persistent constant worse with movement alleviated by rest Past History - Past Medical History Allergies/Adverse Reactions: Allergies Allergy/AdvReac Type Severity Reaction Status Date / Time No Known Drug Allergies Allergy Verified 01/02/19 10:34 Home Medications: Ambulatory Orders NK [No Known Home Medication] 01/02/19 Anemia: No Asthma: No Cancer: No Cardiac Disorders: No CVA: No COPD: No CHF: No Dementia: No Diabetes: No GI Disorders: Yes (ACID REFLUX) Disorders: No HTN: No Hypercholesterolemia: No Liver Disease: No Seizures: No Thyroid Disease: No - Surgical History Abdominal Surgery: No Appendectomy: No Cardiac Surgery: No Cholecystectomy: No Lung Surgery: No Neurologic Surgery: No Orthopedic Surgery: No - Reproductive History (#): 2 Therapeutic (s) & number: Yes (elective) Spontaneous : 1 - Psycho Social/Smoking Cessation Hx Smoking History: Current every day smoker Have you smoked in the past 12 months: No Number of Cigarettes Smoked Daily: 10 Information on smoking cessation initiated: Yes 'Breaking Loose' booklet given: 06/21/16 Hx Alcohol Use: Yes (OCASIONAL) Drug/Substance Use Hx: No Substance Use Type: None, Alcohol Hx Substance Use Treatment: No Review of Systems - Review of Systems Comments:: 01/02/19 10:56 ROS: A complete review of 10 out of 10 review of systems is taken and is negative apart from what is previously mentioned below and in the HPI. *Physical Exam - Vital Signs Last Vital Signs Temp Pulse Resp BP Pulse Ox 98.2 F 103 H 18 133/91 100 01/02/19 10:34 01/02/19 10:34 01/02/19 10:34 01/02/19 10:34 01/02/19 10:34 - Physical Exam Comments: 01/02/19 10:56 Vitals: Triage Vital signs reviewed General Appearance: no acute distress, well nourished well developed, Head: Atraumatic, Neck: Supple;No Nucal rigidity Chest Wall: Bruising and tenderness to palpation in the mid axillary line left ribs no obvious deformity no flail chest Cardiac: Regular rate and rhythym, no murmurs, no rubs, no gallops, Lungs: Clear to auscultation bilateral, good air movement bilaterally, Abdomen: Soft, non distended, normal bowel sounds, non tender to palpation Extremities: Full range of motion to all extremities, no cyanosis, clubbing, or edema Skin: Warm and dry, no rashes or lesions, no rash, no petechiae Psych: normal mood, normal affect ED Treatment Course - RADIOLOGY Radiology Studies Ordered: Category Date Time Status CHEST - PA [RAD] Stat Radiology 01/02/19 10:43 Ordered RIBS-LEFT SIDE [RAD] Stat Radiology 01/02/19 10:43 Ordered *DC/Admit/Observation/Transfer Diagnosis at time of Disposition: Bruised rib Qualifiers: Encounter type: initial encounter Laterality: left Qualified Code(s): S20.212A - Contusion of left front wall of thorax, initial encounter Rib fracture Qualifiers: Encounter type: initial encounter Rib fracture type: single rib Fracture type: closed Laterality: left Qualified Code(s): S22.32XA - Fracture of one rib, left side, initial encounter for closed fracture - Discharge Dispostion Disposition: HOME Condition at time of disposition: Stable Decision to Admit order: No - Referrals Referrals: Radha Hancock MD [Primary Care Provider] - - Patient Instructions Printed Discharge Instructions: Rib Fracture, DI for Rib Contusion Additional Instructions: Ice affected area 20 minutes on 20 minutes off. Take [id number]-luuqqci Motrin as directed on package. Return to emergency department for any severe worsening symptoms or for any concerns. - Post Discharge Activity Forms/Work/School Notes: Back to Work Discharge - Discharge Information Clinical Impression/Diagnosis: Bruised rib Qualifiers: Encounter type: initial encounter Laterality: left Qualified Code(s): S20.212A - Contusion of left front wall of thorax, initial encounter Rib fracture Qualifiers: Encounter type: initial encounter Rib fracture type: single rib Fracture type: closed Laterality: left Qualified Code(s): S22.32XA - Fracture of one rib, left side, initial encounter for closed fracture Condition: Stable Disposition: HOME - Follow up/Referral Referrals: Radha Hancock MD [Primary Care Provider] - - Patient Discharge Instructions Patient Printed Discharge Instructions: Rib Fracture, DI for Rib Contusion Additional Instructions: Ice affected area 20 minutes on 20 minutes off. Take [id number]-yepfutl Motrin as directed on package. Return to emergency department for any severe worsening symptoms or for any concerns. - Post Discharge Activity Work/Back to School Note: Back to Work
[2019-01-02 11:26] VITALS: PULSE 88
== END 2019-01-02 11:27 | disposition home or self-care (01) ==
LOC: FER 10:33
DX: S20.212A Contusion of left front wall of thorax, initial encounter (principal); S22.32XA Fracture of one rib, left side, initial encounter for closed fracture; W18.39XA Other fall on same level, initial encounter; Y93.89 Activity, other specified; Y92.89 Other specified places as the place of occurrence of the external cause; F17.210 Nicotine dependence, cigarettes, uncomplicated; K21.9 Gastro-esophageal reflux disease without esophagitis
CPT/HCPCS: 71045-TC-FY; 71101-TC-LT-FY; 99282-25

== ENCOUNTER 2021-03-26 12:15 | Emergency (ER) | payer OTHER ==
[2021-03-26 12:25] VITALS: BP 132/90; PULSE 89; TEMP 98.7; BMI 21.8
[2021-03-26] MEDS ORDERED: TETRACAINE 0.5% HCL 0.6ML DROPPER.BOTTLE OD ONE (13:55)
[2021-03-26] MEDS ORDERED: FLUORESCEIN NA 1 EA STRIP OD ONE (13:56)
[2021-03-26] MEDS ORDERED: TETRACAINE 0.5% OPHTH SOLN 2 ML BOTTLE ONE (14:18)
[2021-03-26] MEDS ORDERED: FLUORESCEIN NA 1 EA STRIP ONE (14:19)
== END 2021-03-26 15:41 | disposition home or self-care (01) ==
LOC: FER 12:15
DX: H10.9 Unspecified conjunctivitis (principal)
CPT/HCPCS: 99283-25